=== PATIENT | male | born 1950 | race Caucasian/White ===

== ENCOUNTER 2019-03-11 09:18 | Day surgery (SDC) | payer BC, MEDICARE ==
[~2019-03-11 09:18] MED LIST: Acetaminophen TAB* 325 MG PO PRN; Buffered Lidocaine 1% SYRIN* 1 ML/SYRINGE INTRADERM ONE
[2019-03-11] MEDS ORDERED: fentaNYL* 50 MCG/ML 2 ML VIAL (100 MCG VIAL) ONE (11:22)
[2019-03-11] MEDS ORDERED: Midazolam* 1 MG/ML 5 ML VIAL (5 MG) ONE (11:22)
[2019-03-11 12:10] VITALS: BP 135/73
[2019-03-11] MEDS ORDERED: Povidone Iodine 5% OPTH* 30 ML BTL ONE (14:59)
[2019-03-11] MEDS ORDERED: Phenylephrine OPHTH SOL 2.5%* 2 ML ONE (14:59)
[2019-03-11] MEDS ORDERED: acetaZOLAMIDE TAB* 250 MG ONE (14:59)
[2019-03-11] MEDS ORDERED: Ketorolac 0.5% OPHTH (NF) 0.5 % 5 ML BTL ONE (14:59)
[2019-03-11] MEDS ORDERED: Cyclopentolate 1% OPTH.SOL* 2 ML BTL ONE (14:59)
[2019-03-11] MEDS ORDERED: Lidocaine 1% MPF ** 5 ML VIAL ONE (14:59)
[2019-03-11] MEDS ORDERED: Lidocaine 2% w/ EPI 1:200,000* 20 ML SDV VIAL ONE (14:59)
[2019-03-11] MEDS ORDERED: Neomycin/Polymy/Dex OPTH.SUSP* MAXITROL 0.1% 5 ML ONE (14:59)
[2019-03-11] MEDS ORDERED: Proparacaine 0.5% OPHTH.SOL* 15 ML BTL ONE (15:00)
--- NOTE | 2019-03-11 20:12 | OP ---
DATE OF OPERATION: 03/11/19 [facility] DATE OF : 54 SURGEON: Yogesh Purvis M.D. PREOPERATIVE DIAGNOSIS: Cataract, right eye. POSTOPERATIVE DIAGNOSIS: Cataract, right eye. OPERATIVE PROCEDURE: Extracapsular cataract extraction with intraocular lens implant, right eye. DESCRIPTION OF PROCEDURE: The patient was brought to the operating room after being given 1/2% Alcaine with epinephrine drops in the preoperative area. The eye was prepped and draped in the usual sterile fashion. Sterile drape and eyelid speculum were placed. Again, topical 1/2% Alcaine with epinephrine was given. A paracentesis incision was made at the 9 o'clock position with the No.75 blade. Clear cornea incision 2.2 x 2.2-mm was created at the 12 o'clock position starting at the anterior limbus using the 2.2-mm keratome. The anterior chamber was irrigated with 0.4 mL of 1% non-preservative intracameral lidocaine and filled with DisCoVisc. A capsulorrhexis was completed using the cystotome and the Utrata forceps. Hydrodissection was performed with balanced salt solution. The lens nucleus was removed with the Phacoemulsification handpiece without incident. Cortex was removed with the irrigation-aspiration handpiece. The capsular bag was re-inflated using DisCoVisc and an [id number] 22.0 implant was inserted with the shooter, oriented to the 16-degree meridian. Horizontal reference marina were made with the patient in seated position. All measurements were confirmed with ORA. The irrigation- aspiration handpiece was used to remove all residual DisCoVisc. The eye was refilled with balanced salt solution and the wound checked and found to be watertight. Topical Maxitrol drops were given. [id number]/[facility] #: [id number] [facility]
== END 2019-03-11 12:18 | disposition home or self-care (01) ==
LOC: OREAST 09:18
PROVIDERS: ATTEND Specialist
DX: H25.811 Combined forms of age-related cataract, right eye (principal); Z87.891 Personal history of nicotine dependence
CPT/HCPCS: A9270-GY; J2250; J3010; V2787

== ENCOUNTER 2019-03-18 08:54 | Day surgery (SDC) | payer MEDICARE ==
[2019-03-18] MEDS ORDERED: fentaNYL* 50 MCG/ML 2 ML VIAL (100 MCG VIAL) ONE (10:34)
[2019-03-18] MEDS ORDERED: Midazolam* 1 MG/ML 2 ML VIAL (2 MG) ONE (10:34)
[2019-03-18 11:36] VITALS: BP 142/68
--- NOTE | 2019-03-18 12:10 | OP ---
DATE OF OPERATION: 03/18/2019. DATE OF : 1950. SURGEON: Yogesh Purvis M.D. PREOPERATIVE DIAGNOSIS: Cataract left eye. POSTOPERATIVE DIAGNOSIS: Cataract left eye. OPERATIVE PROCEDURE: Extracapsular cataract extraction with intraocular lens implant left eye. PROCEDURE: The patient was brought to the operating room after being given 1/2% Alcaine with epineph rine drops in the preoperative area. The eye was prepped and draped in the usual sterile fashion. S terile drape and eyelid speculum were placed. Again, topical 1/2% Alcaine with epinephrine was given . A paracentesis incision was made at the 3 o'clock position with the No.75 blade. Clear cornea inc ision 2.2 x 2.2-mm was created at the 6 o'clock position starting at the anterior limbus using the 2. 2-mm keratome. The anterior chamber was irrigated with 0.4 mL of 1% non-preservative intracameral li docaine and filled with DisCoVisc. A capsulorrhexis was completed using the cystotome and the Utrata forceps. Hydrodissection was performed with balanced salt solution. The lens nucleus was removed wi th the Phacoemulsification handpiece without incident. Cortex was removed with the irrigation-aspira tion handpiece. The capsular bag was re-inflated using DisCoVisc and an [id number] 19 implant was insert ed with the shooter, oriented to the 177 degree meridian. Horizontal reference marina were made with the patient in the seated position in the preoperative area. All measurements were confirmed with OR A. The irrigation-aspiration handpiece was used to remove all residual DisCoVisc. The eye was refil led with balanced salt solution and the wound checked and found to be watertight. Topical Maxitrol d rops were given. [id number]/[facility] #: [id number]
[2019-03-18] MEDS ORDERED: Proparacaine 0.5% OPHTH.SOL* 15 ML BTL ONE (13:42)
[2019-03-18] MEDS ORDERED: Lidocaine 1% MPF ** 5 ML VIAL ONE (13:42)
[2019-03-18] MEDS ORDERED: acetaZOLAMIDE TAB* 250 MG ONE (13:42)
[2019-03-18] MEDS ORDERED: Phenylephrine OPHTH SOL 2.5%* 2 ML ONE (13:42)
[2019-03-18] MEDS ORDERED: Cyclopentolate 1% OPTH.SOL* 2 ML BTL ONE (13:42)
[2019-03-18] MEDS ORDERED: Lidocaine 2% w/ EPI 1:200,000* 20 ML SDV VIAL ONE (13:42)
[2019-03-18] MEDS ORDERED: Ketorolac 0.5% OPHTH (NF) 0.5 % 5 ML BTL ONE (13:42)
[2019-03-18] MEDS ORDERED: Povidone Iodine 5% OPTH* 30 ML BTL ONE (13:42)
[2019-03-18] MEDS ORDERED: Neomycin/Polymy/Dex OPTH.SUSP* MAXITROL 0.1% 5 ML ONE (13:42)
== END 2019-03-18 11:45 | disposition home or self-care (01) ==
LOC: OREAST 08:54
PROVIDERS: ATTEND Specialist
DX: H25.812 Combined forms of age-related cataract, left eye (principal); H10.5 Blepharoconjunctivitis; H52.229 Regular astigmatism, unspecified eye; H43.819 Vitreous degeneration, unspecified eye; H52.10 Myopia, unspecified eye; H55.89 Other irregular eye movements; H52.00 Hypermetropia, unspecified eye; Z87.891 Personal history of nicotine dependence; J45.909 Unspecified asthma, uncomplicated
CPT/HCPCS: A9270-GY; J2250; J3010; V2787